=== PATIENT | female | born 1960 | race Caucasian/White ===

== ENCOUNTER → 2020-01-29 08:43 | Outpatient (CLI) | payer BC, SELFPAY ==
--- NOTE | 2020-01-29 08:47 | MM_ITS ---
PROCEDURE: MM DIG SCREENING MAMM BI W/CAD Digital Breast Tomosynthesis Included CLINICAL INDICATION: SCREENING There is a history of breast cancer in the patient's mother. COMPARISON: DIG MAMMO BILAT SCREENING from 07/04/2016 DIG MAMMO BILAT SCREENING from 07/06/2017 DIG MAMMO DIAG UNI LEFT from 10/30/2017 TECHNIQUE: Standard CC and MLO images and 3D Tomosynthesis was obtained. R2 CAD reviewed. FINDINGS: There is a diffusely dense and heterogenic parenchymal pattern and the findings of bilateral and symmetrical.. There are scattered benign-appearing microcalcifications in each breast more numerous right breast than left. Viktor images are most helpful in this type of breast parenchyma. There is no suspicious lesion and no suspicious microcalcifications. IMPRESSION: Stable exam with dense parenchymal pattern and no suspicious lesions seen BI-RAD Category: 2 Benign Finding(s) FOLLOW-UP: 1YR 1 Year Follow-up (A letter has been sent to the patient regarding results of the study.) Dictated by: Dr. Filemon Tinsley MD 02/03/2020 10:[address] Filemon Tinsley MD in [place] 02/03/2020 10:24
== END ==
PROVIDERS: PCP Internal Medicine; Visit Provider Nurse Practitioner Family
DX: Z12.31 Encounter for screening mammogram for malignant neoplasm of breast (principal)
CPT/HCPCS: 77063; 77067

== ENCOUNTER → 2021-02-02 08:14 | Outpatient (CLI) | payer BC, SELFPAY ==
--- NOTE | 2021-02-02 08:17 | MM_ITS ---
PROCEDURE: MM DIG SCREENING MAMM BI W/CAD Digital Breast Tomosynthesis Included CLINICAL INDICATION: SCREENING There is a history of breast cancer in the patient's mother. COMPARISON: MG DIG MAMMO BILAT SCREENING from 07/06/2017 MG DIG MAMMO DIAG UNI LEFT from 10/30/2017 MG MM DIG SCREENING MAMM BI W/CAD from 01/29/2020 TECHNIQUE: Standard CC and MLO images and 3D Tomosynthesis was obtained. R2 CAD reviewed. FINDINGS: There is a markedly and diffusely dense parenchymal pattern lessening the sensitivity of mammography. Viktor images are most helpful this type of dense breast parenchyma. Is a mole marker left breast. There are few benign-appearing microcalcifications in each breast. There are more microcalcifications outer quadrant right breast than left the appear to be typical of sclerosing adenosis. There is no suspicious lesion and no suspicious microcalcifications. IMPRESSION: Stable dense parenchymal pattern with no suspicious lesions seen BI-RAD Category: 2 Benign Finding(s) FOLLOW-UP: 1YR 1 Year Follow-up (A letter has been sent to the patient regarding results of the study.) Dictated by: Dr. Filemon Tinsley MD 02/05/2021 08:16 Dr. Filemon Tinsley MD in [place] 02/05/2021 08:16
== END ==
PROVIDERS: PCP Internal Medicine; Visit Provider Nurse Practitioner Family
DX: Z12.31 Encounter for screening mammogram for malignant neoplasm of breast (principal)
CPT/HCPCS: 77063; 77067